=== PATIENT | male | born 1945 | race African-American/Black ===

== ENCOUNTER 2017-08-28 11:10 | Emergency (ER) | payer MEDICARE ==
[~2017-08-28] VITALS: Ht 172.7 cm; Wt 79.4 kg
[2017-08-28 11:25] VITALS: BP 153/105
[2017-08-28] MEDS ORDERED: OXYMETAZOLINE HCL NASAL SPRAY 30 ML BOTTLE NS ONE ×2 (11:46→12:00)
== END 2017-08-28 12:36 | disposition home or self-care (01) ==
LOC: ER 11:13
DX: R04.0 Epistaxis (principal); E78.00 Pure hypercholesterolemia, unspecified
CPT/HCPCS: 99282; A4606; Z7610